=== PATIENT | male | born 1975 | race Caucasian/White ===

== ENCOUNTER 2018-04-15 11:25 | Inpatient (IN) | payer OTHER, SELFPAY ==
[2018-04-15 11:26] VITALS: BP 128/90; PULSE 95; RESP 18; TEMP 36.6; O2SAT 98; BMI 38.2
[2018-04-15] MEDS: 0.9% Normal Saline 1,000 ML 1000 ML IV (12:05)
[2018-04-15] MEDS: Morphine 4 MG/ML Syringe IV ×2 (12:06→14:22)
[2018-04-15] MEDS: Ondansetron 4 MG/2 ML Vial IV (12:06)
[2018-04-15 12:17] LABS: Absolute Lymphocyte Count 1.62 X10^3/ul (0.83-4.51); Basophil# 0.01 X10^3/uL; Basophil% 0.1 % (0-1); Differential Indicated SCAN CRITERIA MET; Eosinophils% 0.8 % (0-5); Hematocrit 45.9 % (40-54); Hemoglobin 15.5 g/dl (13.0-16.5); Lymphocyte # 1.62 X10^3/ul (4.0); Lymphocyte % 12.2 % (19-41); Mean Corp Hgb Conc 33.8 g/gl (32-36); Mean Corpuscular Hgb 31.8 pg (27.0-32.0); Mean Corpuscular Volume 94.3 fL (80-94); Mean Platelet Vol. 10.4 fl (6.2-12.0); Monocyte# 1.57 X10^3/uL; Monocyte% 11.8 % (0-10); Neutrophil # 10.01 X10^3/uL (2.7-7.7); Neutrophil % 74.9 % (47-70); POSITIVE COUNT NO; POSITIVE DIFFERENTIAL YES; POSITIVE MORPHOLOGY NO; Platelet Count 179 K/mm3 (150-450); RBC Distribution Width CV 12.5 % (11.6-14.6); RBC Distribution Width SD 42.6 fl (35.1-43.9); Red Blood Count 4.87 M/mm3 (4.6-6.2); White Blood Count 13.3 K/mm3 (4.4-11.0)
[2018-04-15 12:31] LABS: AST(SGOT) 16 U/L (15-37); Alanine Aminotransfer ALT/SGPT 32 U/L (16-61); Albumin, Serum 4.1 g/dL (3.2-5.0); Alkaline Phosphatase 71 U/L (45-117); Anion Gap 9 (5-15); BUN 9 mg/dL (7-18); BUN/Creat Ratio 8.9 RATIO (10-20); Bilirubin, Direct 0.26 mg/dL (0.00-0.30); Calcium,Total 9.1 mg/dL (8.5-10.1); Chloride 105 mmol/L (98-107); Creatinine, Serum 1.01 mg/dL (0.70-1.30); EST Glomerular Filtration Rate 87 mL/min (>60); Est Glom Filt Rate - Afr Amer 105 mL/min (>60); Estimated Creatinine Clearance 109.87 ml/min; Globulin 3.7 g/dL (2.2-4.2); Glucose 98 mg/dL (74-106); Lipase 80 U/L (73-393); Potassium 4.1 mmol/L (3.5-5.1); Protein, Total 7.8 g/dL (6.4-8.2); Sodium Level 138 mmol/L (136-145)
--- NOTE | 2018-04-15 14:45 | ED.VISSUMM ---
- ER Visit Summary Date of Service: 04/15/18 Chief Complaint: Abdominal pain History of Present Illness: The patient is a 42 M presenting with 24 hours of left lower quadrant abdominal pain, nausea, but no vomiting or diarrhea. Denies previous similar symptoms. No obvious relieving or exacerbating factors. Physical Examination: Vitals are within normal limits. He is not in distress. He does have tenderness in the left lower quadrant but no rebound or guarding Test Results: Blood cell count is elevated at 13,300. Chemistries within normal limits except for slight elevation of liver enzymes. CT with IV and p.o. contrast reveals moderate colonic diverticulitis in the transverse colon. Emergency Department Course and Treatment: He has moderate colitis. His pain is fairly significant and he had to be re-medicated twice and with his leukocytosis but I do think it is reasonable to hospitalize him for IV antibiotics. He was medicated with morphine twice as well as Cipro and Flagyl IV. Treatment Plan: Admit for IV antibiotics Disposition: Admission, stable condition Impression: Initial encounter acute diverticulitis This note was generated with [employer] dictation software. It may contain incorrect words, spelling, and punctuation that were not noted in review of the chart prior to signing ED Disposition - Plan for ED Patient: Chief Complaint: Abd Pain Referrals: Pedro Parsons MD [Primary Care Provider] -
--- NOTE | 2018-04-15 15:07 | NURSING ---
[facility] DIVERTICULITIS MILAD
[2018-04-15 15:31] VITALS: BMI 38.1; BMI 38.3
[2018-04-15 15:42] VITALS: BP 126/84; PULSE 78; RESP 18; TEMP 36.8; O2SAT 96
[2018-04-15] MEDS: Ketorolac 30 MG/ML Syringe IV ×2 (16:02→21:20)
[2018-04-15 16:09] LABS: Bacteria 0 SEEN /hpf (None Seen); Mucous, Urine 0 SEEN /hpf (<or=2+); White Blood Cells 0 SEEN /hpf (0-5)
[2018-04-15 16:12] LABS: Absolute Lymphocyte Count 1.85 X10^3/ul (0.83-4.51); Absolute Neutrophil Count 9.2 X10^3/uL (2.0-7.7); Basophil# 0.01 X10^3/uL; Basophil% 0.1 % (0-1); Eosinophil# 0.06 X10^3/uL; Eosinophils% 0.5 % (0-5); Hematocrit 44.3 % (40-54); Lymphocyte # 1.85 X10^3/ul (4.0); Lymphocyte % 15.2 % (19-41); Mean Corp Hgb Conc 33.9 g/gl (32-36); Mean Corpuscular Hgb 32.1 pg (27.0-32.0); Mean Corpuscular Volume 94.9 fL (80-94); Mean Platelet Vol. 9.9 fl (6.2-12.0); Monocyte# 1.11 X10^3/uL; Monocyte% 9.1 % (0-10); Neutrophil # 9.16 X10^3/uL (2.7-7.7); Neutrophil % 74.9 % (47-70); POSITIVE COUNT NO; POSITIVE DIFFERENTIAL NO; POSITIVE MORPHOLOGY NO; Platelet Count 181 K/mm3 (150-450); RBC Distribution Width CV 12.3 % (11.6-14.6); RBC Distribution Width SD 42.3 fl (35.1-43.9); Red Blood Count 4.67 M/mm3 (4.6-6.2); White Blood Count 12.2 K/mm3 (4.4-11.0)
[2018-04-15 16:12] LABS: Color, Urine Yellow (Yellow); Glucose, Dipstick Normal (Normal); Ketone-Dipstick Negative (Negative); Leukocyte Esterase-Dipstick Negative /ul (Negative); Nitrite-Dipstick Negative (Negative); Occult Blood-Urine 10 /ul (Negative); Protein-Dipstick Negative (Negative); Specific Gravity, Urine 1.015 (1.002-1.030); Urine Bilirubin Dipstick Negative (Negative); Urine Clarity Clear (Clear); Urine Urobilinogen Normal (Normal)
--- NOTE | 2018-04-15 16:21 | PCM.HP.STD ---
Problem List (1) Acute diverticulitis Status: Acute History of Present Illness Date of Admission: 04/15/18 Chief Complaint: abdominal pain The patient is a 42 year old M, presents to the ED with 1 day h/o abdominal pain. mainly in the upper and left side of the abdomen. Feels like a severe ache, about 8/10, constant, non radiating and with no known precipitating, aggravating or relieving factors. He denies any fever or chills. Has anorexia, has not reported any nausea or vomiting. Denies constipation or diarrhea, denies any hematochezia. CT done in the ED showed transverse colon diverticulitis. Patient has never had such an episode in the past.[] Past Medical History Medical History: Medical History (Last Updated 04/15/18 @ 16:26 by Kofi Wilkerson MD) HTN (hypertension) I10 Allergies No Known Allergies Allergy (Verified 04/15/18 11:27) Home Medications: Ambulatory Orders Medication Instructions Recorded Bisoprolol Fumarate [Zebeta] 5 mg PO DAILY 04/15/18 Lives: Spouse/ Significant Other, With Family Smoking Status: Former smoker Review of Systems Constitutional: Reports: Anorexia, Malaise, Weakness. Denies: Chills, Fever Cardiovascular: Denies: Chest Pain, Claudication, Orthopnea Respiratory: Denies: Cough, Hemoptysis, Shortness of Breath Gastrointestinal: Reports: Abdominal Pain. Denies: Constipation, Diarrhea, Hematemesis VTE Information - Inpt Only VTE Present on Admission: Yes Patient Problems: Active and Suspected Problems Acute diverticulitis (Acute) - Physical Exam General: Alert, Oriented x3, Cooperative, - - mildly ill looking and in painful distress Oral: Moist Mucosa Neck: Supple, No JVD, No Nuchal Rigidity Lungs: Clear to auscultation, Normal air movement, No rhonchi, No wheeze, No rales Cardiovascular: Regular rate, Regular Rhythm, Normal S1, Normal S2, No murmurs, No Ectopic Activity Abdomen: Bowel Sounds Present, Soft, Obese, Tender - tenderness in the upper and left parts of abdomen, no guarding demonstrated Extremities: No edema Skin: No rashes Musculoskeletal: No Muscle Wasting Neurological: Cranial nerves II-XII grossly intact, Deep Tendon Reflexes 2+/4 and Symmetrical, Neuro grossly intact, Motor Exam 5/5 strength throughout Psych/Mental Status: Normal Affect, Appropriate, Anxious Vital Signs Temp Pulse Resp BP Pulse Ox 98.3 F 78 18 126/84 H 96 04/15/18 15:42 04/15/18 15:42 04/15/18 15:42 04/15/18 15:42 04/15/18 15:42 Oxygen Delivery Method Room Air Weight: 131.088 kg Body Mass Index (BMI) 38.1 Laboratory Tests Past 24 Hrs 04/15/18 04/15/18 15:40 15:45 WBC 12.2 H RBC 4.67 Hgb 15.0 Hct 44.3 MCV 94.9 H MCH 32.1 H MCHC 33.9 RDW 12.3 RDW Differential 42.3 Plt Count 181 MPV 9.9 Immature Gran % (Auto) 0.200 Neut % (Auto) 74.9 H Lymph % (Auto) 15.2 L [place] % (Auto) 9.1 Eos % (Auto) 0.5 Baso % (Auto) 0.1 Absolute Neuts (auto) 9.2 H Absolute Lymphs (auto) 1.85 Total Counted Not Reportable Urine Color Pending Urine Clarity Pending Urine pH Pending Ur Specific [place] Pending Urine Protein Pending Urine Glucose (UA) Pending Urine Ketones Pending Urine Occult Blood Pending Urine Nitrite Pending Urine Bilirubin Pending Urine Urobilinogen Pending Ur Leukocyte Esterase Pending Urine RBC Pending Urine WBC Pending Ur Squamous Epith Cells Pending Urine Bacteria Pending Urine Mucus Pending Assessment/Plan All Active Problems Acute diverticulitis (Acute) 1. Acute [address] images personally viewed and show inflammation around diverticuli in the transverse colon. Will keep patient npo. Start on IV fluids and analgesics and start on broad spectrum antibiotics to cover usual gut gram negative aerobes and anaerobes. Nature of disease explained to patient and family and all questions answered. 2. Morbid obesity. Will need to international student counselor on weight reduction 3. HTN. Will continue Bisoprolol 4. DVT prophylaxis with Lovenox SC
[2018-04-15 16:28] LABS: Red Blood Cells-Urine 0-5 SEEN /hpf (0-5); Squamous Epithelial Cells - UA 0-5 SEEN /hpf (0-5)
[2018-04-15] MEDS: Morphine 2 MG/ML Syringe IV ×2 (17:19→22:40)
[2018-04-15 20:28] VITALS: BP 128/78; PULSE 69; RESP 16; TEMP 36.6; O2SAT 95
[2018-04-15] MEDS: 0.9% NaCl Peripheral Flush Adult/Peds IV ×2 (21:23→22:41)
[2018-04-15] MEDS: Ciprofloxacin 400 MG/200 ML BAG 200 MG IV (22:40)
[2018-04-16 02:30] VITALS: BP 123/81; PULSE 63; RESP 16; TEMP 36.9; O2SAT 97
[2018-04-16] MEDS: Ketorolac 30 MG/ML Syringe IV ×4 (03:03→21:49)
[2018-04-16] MEDS: 0.9% NaCl Peripheral Flush Adult/Peds IV ×4 (03:03→23:28)
[2018-04-16 09:51] VITALS: BP 137/79; PULSE 78; RESP 18; TEMP 36.7; O2SAT 98
[2018-04-16] MEDS: Ciprofloxacin 400 MG/200 ML BAG 200 MG IV ×2 (09:57→21:49)
[2018-04-16] MEDS: Morphine 2 MG/ML Syringe IV ×3 (09:57→23:27)
[2018-04-16] MEDS: Enoxaparin 40 MG/0.4 ML Syringe SC (09:58)
[2018-04-16] MEDS: Bisoprolol Fumarate 5 MG Tablet PO (09:59)
[2018-04-16 14:01] VITALS: BP 118/63; PULSE 78; RESP 18; TEMP 37.6; O2SAT 94
--- NOTE | 2018-04-16 15:14 | PCM.PN.HOSP ---
Patient Problems: Active and Suspected Problems (Last Updated 04/15/18 @ 16:26 by Kofi Wilkerson MD) Acute diverticulitis (Acute) Subjective: f/u for acute transverse colon diverticulitis patient seen and examined Still having abdominal pain No fever Vitals/I&O's: Vital Signs Temp Pulse Resp BP Pulse Ox 99.6 F H 78 18 118/63 94 04/16/18 14:01 04/16/18 14:01 04/16/18 14:01 04/16/18 14:01 04/16/18 14:01 Oxygen Delivery Method Room Air Weight: 131.088 kg Body Mass Index (BMI) 38.1 Intake and Output for Last 24 Hours 04/14/18 04/15/18 04/16/18 23:59 23:59 23:59 Intake Total 832 / 832 1926 / 1926 Output Total 600 / 600 Balance 832 / 832 1326 / 1326 General: Alert, Oriented x3, Cooperative, - - mild painful distress, mildly ill looking HEENT: Atraumatic, - - ? face appears puffy Oral: Moist Mucosa Neck: Supple Lungs: Clear to auscultation Cardiovascular: Regular rate Abdomen: Bowel Sounds Present - almost hyperactive, Hyperactive Bowel Sounds, Tender - tender in the mid, upper and left abdomen Extremities: No clubbing, No edema Skin: No rashes Neurological: Cranial nerves II-XII grossly intact, Neuro grossly intact Psych/Mental Status: Normal Affect, Appropriate, Alert and oriented to time, place, person, mood and affect Laboratory Results 04/15/18 15:40: WBC 12.2 H, RBC 4.67, Hgb 15.0, Hct 44.3, MCV 94.9 H, MCH 32.1 H, MCHC 33.9, RDW 12.3, RDW Differential 42.3, Plt Count 181, MPV 9.9, Immature Gran % (Auto) 0.200, Neut % (Auto) 74.9 H, Lymph % (Auto) 15.2 L, [place] % (Auto) 9.1, Eos % (Auto) 0.5, Baso % (Auto) 0.1, Absolute Neuts (auto) 9.2 H, Absolute Lymphs (auto) 1.85, Total Counted Not Reportable 04/15/18 15:45: Urine Color Yellow, Urine Clarity Clear, Urine pH 5.0, Ur Specific [place] 1.015, Urine Protein Negative, Urine Glucose (UA) Normal, Urine Ketones Negative, Urine Occult Blood 10 H, Urine Nitrite Negative, Urine Bilirubin Negative, Urine Urobilinogen Normal, Ur Leukocyte Esterase Negative, Urine RBC 0-5 SEEN, Urine WBC 0 SEEN, Ur Squamous Epith Cells 0-5 SEEN, Urine Bacteria 0 SEEN, Urine Mucus 0 SEEN Current Medications Bisoprolol Fumarate (Zebeta) 5 mg PO DAILY [facility] Last Admin: 04/16/18 09:59 Dose: 5 mg Enoxaparin Sodium (Lovenox) 40 mg SC DAILY@1000 [facility] Last Admin: 04/16/18 09:58 Dose: 40 mg Ciprofloxacin (Cipro) 400 mg in 200 mls @ 200 mls/hr IV Q12 [facility] Last Admin: 04/16/18 09:57 Dose: 200 mls/hr Metronidazole (Flagyl) 500 mg in 100 mls @ 100 mls/hr IV Q8 [facility] Last Admin: 04/16/18 14:09 Dose: 100 mls/hr Potassium Chloride/Dextrose/Sod Cl () 1,000 mls @ 125 mls/hr IV .Q8H [facility] Last Admin: 04/16/18 06:11 Dose: 125 mls/hr Ketorolac Tromethamine (Toradol) 30 mg IV Q6H [facility] Stop: 04/20/18 16:01 Last Admin: 04/16/18 09:59 Dose: 30 mg Magnesium Hydroxide (Milk Of Magnesia) 30 ml PO DAILY PRN PRN PRN Reason: Constipation Morphine Sulfate () 2 mg IV Q4H PRN PRN PRN Reason: BREAKTHROUGH PAIN (>4/10) Last Admin: 04/16/18 09:57 Dose: 2 mg Sodium Chloride () 5 - 30 ml IV UD PRN PRN Reason: SALINE FLUSH Last Admin: 04/16/18 03:03 Dose: 10 ml Medical Necessity - Tobacco Use Smoking Status: Former smoker Assessment/Plan All Active Problems (Last Updated 04/15/18 @ 16:26 by Kofi Wilkerson MD) Acute diverticulitis (Acute) 1. Acute diverticulitis. Not significantly better Will continue npo. Continue IV fluids and analgesics and antibiotics. 2. Morbid obesity. 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 HTN. Will continue Bisoprolol 4. DVT prophylaxis with Lovenox SC Code Visit Inpatient E&M: 24250 Subs Hosp L2
[2018-04-16 20:15] VITALS: BP 122/70; PULSE 68; RESP 16; TEMP 36.4; O2SAT 95
[2018-04-17 02:15] VITALS: BP 106/72; PULSE 56; RESP 16; TEMP 37.4; O2SAT 99
[2018-04-17] MEDS: 0.9% NaCl Peripheral Flush Adult/Peds IV (04:37)
[2018-04-17] MEDS: Ketorolac 30 MG/ML Syringe IV ×2 (04:38→10:12)
[2018-04-17 06:11] LABS: Absolute Lymphocyte Count 1.44 X10^3/ul (0.83-4.51); Absolute Neutrophil Count 4.7 X10^3/uL (2.0-7.7); Basophil# 0.01 X10^3/uL; Basophil% 0.1 % (0-1); Eosinophil# 0.18 X10^3/uL; Eosinophils% 2.6 % (0-5); Hematocrit 40.5 % (40-54); Hemoglobin 13.4 g/dl (13.0-16.5); Lymphocyte # 1.44 X10^3/ul (4.0); Lymphocyte % 20.5 % (19-41); Mean Corp Hgb Conc 33.1 g/gl (32-36); Mean Corpuscular Hgb 31.9 pg (27.0-32.0); Mean Corpuscular Volume 96.4 fL (80-94); Mean Platelet Vol. 10.1 fl (6.2-12.0); Monocyte# 0.74 X10^3/uL; Monocyte% 10.5 % (0-10); Neutrophil # 4.65 X10^3/uL (2.7-7.7); Neutrophil % 66.2 % (47-70); Platelet Count 153 K/mm3 (150-450); RBC Distribution Width CV 12.2 % (11.6-14.6); RBC Distribution Width SD 42.1 fl (35.1-43.9)
[2018-04-17 06:17] LABS: POSITIVE COUNT NO; POSITIVE DIFFERENTIAL NO; POSITIVE MORPHOLOGY NO
[2018-04-17 06:45] LABS: ALB/GLOB Ratio 0.8 RATIO (0.9-2.4); AST(SGOT) 10 U/L (15-37); Alanine Aminotransfer ALT/SGPT 23 U/L (16-61); Albumin, Serum 2.7 g/dL (3.2-5.0); Alkaline Phosphatase 66 U/L (45-117); Anion Gap 9 (5-15); BUN 9 mg/dL (7-18); BUN/Creat Ratio 10.4 RATIO (10-20); Calcium,Total 8.4 mg/dL (8.5-10.1); Chloride 108 mmol/L (98-107); Creatinine, Serum 0.87 mg/dL (0.70-1.30); EST Glomerular Filtration Rate 103 mL/min (>60); Est Glom Filt Rate - Afr Amer 125 mL/min (>60); Estimated Creatinine Clearance 127.55 ml/min; Globulin 3.3 g/dL (2.2-4.2); Glucose 99 mg/dL (74-106); Sodium Level 144 mmol/L (136-145)
[2018-04-17] MEDS: Morphine 2 MG/ML Syringe IV (07:44)
[2018-04-17 07:45] VITALS: BP 118/70; PULSE 57; RESP 16; TEMP 36.4; O2SAT 98
--- NOTE | 2018-04-17 10:04 | PCM.PN.HOSP ---
Patient Problems: Active and Suspected Problems (Last Updated 04/15/18 @ 16:26 by Kofi Wilkerson MD) Acute diverticulitis (Acute) Subjective: Still of left-sided abdominal pain but overall better. Patient has never had diverticulitis before. Vitals/I&O's: Vital Signs Temp Pulse Resp BP Pulse Ox 36.4 C L 57 L 16 118/70 98 04/17/18 07:45 04/17/18 07:45 04/17/18 07:45 04/17/18 07:45 04/17/18 07:45 Oxygen Delivery Method Room Air Weight: 131.088 kg Body Mass Index (BMI) 38.1 Intake and Output for Last 24 Hours 04/15/18 04/16/18 04/17/18 23:59 23:59 23:59 Intake Total 832 / 832 3508 / 3508 705 / 705 Output Total 1200 / 1200 600 / 600 Balance 832 / 832 2308 / 2308 105 / 105 General: Alert, No apparent distress HEENT: Atraumatic, Normocephalic Oral: Moist Mucosa, No Gingival or Mucosal Lesions/ Ulcerations Neck: No Nodes, Thyroid Normal Size and Texture Lungs: Clear to auscultation, Normal air movement, No rhonchi, No wheeze Cardiovascular: Regular rate, Regular Rhythm, Normal S1, Normal S2, No murmurs Abdomen: Bowel Sounds Present, Soft, Non-Distended, No Hepato-splenomegaly, Tender - Mild left lower quadrant Extremities: No edema, No Calf Tenderness Skin: No rashes, No breakdown Psych/Mental Status: Normal Affect, Appropriate Laboratory Results 04/17/18 05:35: WBC 7.0, RBC 4.20 L, Hgb 13.4, Hct 40.5, MCV 96.4 H, MCH 31.9, MCHC 33.1, RDW 12.2, RDW Differential 42.1, Plt Count 153, MPV 10.1, Immature Gran % (Auto) 0.100, Neut % (Auto) 66.2, Lymph % (Auto) 20.5, [place] % (Auto) 10.5 H, Eos % (Auto) 2.6, Baso % (Auto) 0.1, Absolute Neuts (auto) 4.7, Absolute Lymphs (auto) 1.44, Total Counted Not Reportable 04/17/18 05:35: Sodium 144, Potassium 4.0, Chloride 108 H, Carbon Dioxide 27.0, Anion Gap 9, BUN 9, Creatinine 0.87, Estim Creat Clear Calc 127.55, Est GFR (MDRD) Af Amer 125, Est GFR (MDRD) Non-Af 103, BUN/Creatinine Ratio 10.4, Glucose 99, Calcium 8.4 L, Total Bilirubin 0.80, AST 10 L, ALT 23, Alkaline Phosphatase 66, Total Protein 6.0 L, Albumin 2.7 L, Globulin 3.3, Albumin/Globulin Ratio 0.8 L Current Medications Bisoprolol Fumarate (Zebeta) 5 mg PO DAILY [facility] Last Admin: 04/16/18 09:59 Dose: 5 mg Enoxaparin Sodium (Lovenox) 40 mg SC DAILY@1000 [facility] Last Admin: 04/16/18 09:58 Dose: 40 mg Ciprofloxacin (Cipro) 400 mg in 200 mls @ 200 mls/hr IV Q12 [facility] Last Admin: 04/16/18 21:49 Dose: 200 mls/hr Metronidazole (Flagyl) 500 mg in 100 mls @ 100 mls/hr IV Q8 [facility] Last Admin: 04/17/18 05:24 Dose: 100 mls/hr Potassium Chloride/Dextrose/Sod Cl () 1,000 mls @ 125 mls/hr IV .Q8H [facility] Last Admin: 04/17/18 05:24 Dose: 125 mls/hr Ketorolac Tromethamine (Toradol) 30 mg IV Q6H [facility] Stop: 04/20/18 16:01 Last Admin: 04/17/18 04:38 Dose: 30 mg Magnesium Hydroxide (Milk Of Magnesia) 30 ml PO DAILY PRN PRN PRN Reason: Constipation Morphine Sulfate () 2 mg IV Q4H PRN PRN PRN Reason: BREAKTHROUGH PAIN (>4/10) Last Admin: 04/17/18 07:44 Dose: 2 mg Sodium Chloride () 5 - 30 ml IV UD PRN PRN Reason: SALINE FLUSH Last Admin: 04/17/18 04:37 Dose: 10 ml Medical Necessity - Tobacco Use Smoking Status: Former smoker Assessment/Plan All Active Problems (Last Updated 04/15/18 @ 16:26 by Kofi Wilkerson MD) Acute diverticulitis (Acute) 1. Acute diverticulitis Overall improving Would advance diet from clears to low residue, patient tolerates that and I would anticipate patient being able to be discharged to complete a course of ciprofloxacin and metronidazole and would treat through the 10th Patient made him aware that this could be just an isolated event but certainly could happen again and to have a low threshold to notify his physician or come back to the emergency room if he does have worsening symptoms. The patient does well with diet later on today than I would anticipate patient being able to be discharged this afternoon. 2. DVT prophylaxis with Lovenox Code Visit Inpatient E&M: 42881 Subs Hosp L2
[2018-04-17] MEDS: Enoxaparin 40 MG/0.4 ML Syringe SC (10:12)
[2018-04-17] MEDS: Ciprofloxacin 400 MG/200 ML BAG 200 MG IV (10:12)
[2018-04-17] MEDS: Bisoprolol Fumarate 5 MG Tablet PO (10:13)
[2018-04-17 11:45] VITALS: BP 113/79; PULSE 58; RESP 16; TEMP 36.3; O2SAT 95
[2018-04-17 14:15] VITALS: BP 115/64; PULSE 64; RESP 16; TEMP 36.6; O2SAT 96
--- NOTE | 2018-04-17 14:20 | PCM.WORK.EX ---
Work/School Excuse Work/School Excuse for:: Patient Please excuse this person from:: Work From: 04/15/18 through: 05/04/18
--- NOTE | 2018-04-17 14:21 | PCM.DC ---
- Discharge Diagnoses Current Active Problems: Current Active and Chronic Problems (Last Updated 04/15/18 @ 16:26 by Kofi Wilkerson MD) Acute diverticulitis (Acute) You will use the following diet at home:: Other - [place] and soft. Advance as tolerated. No alcohol while taking metronidazol. Your food should be the consistency of: Soft (bite-sized & easy to chew/swallow) - advance as tolerated Your liquids should be the consistency of: Regular/Thin Discharge Activity: Return to Normal Activity, May not drive while taking narcotic pain medications. Return to work on:: 04/20/18 Call your doctor if you observe: Fever of 101 or Higher, - - worsening abdominal pain. Allergies/Adverse Reactions: Allergies No Known Allergies Allergy (Verified 04/15/18 11:27) Medications to take at Discharge Bisoprolol Fumarate [Zebeta (Beta Jimi)] 5 mg PO DAILY 04/15/18 Acetaminophen 1,000 mg PO TID PRN #1 tablet 04/17/18 Ciprofloxacin [Cipro] 500 mg PO BID #16 tab 04/17/18 Ibuprofen 400 - 600 mg PO Q6H PRN #1 tablet 04/17/18 Metronidazole [Flagyl] 500 mg PO Q8H #24 tab 04/17/18 Oxycodone [Oxyfast] 5 mg PO Q6H PRN 3 Days #12 ml 04/17/18 The following prescriptions were given: Metronidazole [Flagyl] 500 mg PO Q8H #24 tab Ciprofloxacin [Cipro] 500 mg PO BID #16 tab Ibuprofen 400 - 600 mg PO Q6H PRN #1 tablet PRN Reason: Pain Oxycodone [Oxyfast] 5 mg PO Q6H PRN 3 Days #12 ml PRN Reason: Severe Pain (6-10/10) Acetaminophen 1,000 mg PO TID PRN #1 tablet PRN Reason: Pain Primary Care Physician: Pedro Parsons MD [Primary Care Provider] - Within 2 Weeks Test Results: Test results from this visit will be discussed in further detail at your follow-up appointment, if applicable. Proposed Discharge Date: 04/17/18
--- NOTE | 2018-04-17 14:24 | PCM.DC.SUM ---
Discharge Date and Diagnosis - Problem List Patient Problems: Active and Suspected Problems (Last Updated 04/15/18 @ 16:26 by Kofi Wilkerson MD) Acute diverticulitis (Acute) Date of Admission: 04/15/18 Date of Discharge: 04/17/18 - Primary Discharge Diagnosis Active and Suspected Problems (Last Updated 04/15/18 @ 16:26 by Kofi Wilkerson MD) Acute diverticulitis (Acute) Hospital Course and Treatment Imaging Results: Clinical Impression(s) from Imaging Studies Abdomen/Pelvis CT 04/15/18 11:44 IMPRESSION: Mid transverse colon diverticulitis. Fatty umbilical hernia. Small hiatal hernia. Electronically Signed: Riky Brady DO at 14:32 EDT Tel [phone], Service support , Operations: None Procedures: None Summary of Care Provided: The patient is a 42 year old M abdominal pain. Patient had a CAT scan that showed in the transverse colon. Patient denies ever having had like this before. Patient was started on IV ciprofloxacin and metronidazole. Overall, the patient has improved. Patient was started on clears which he tolerated and advanced to soft low residue diet which she also tolerated. Patient will be discharged today. Patient will complete course of ciprofloxacin and metronidazole for a total of 10 days. Patient advised to return if he has worsening abdominal pain or increasing fever. Patient will be off of work until April 20.[] Discharge Diet: - - bland, advance as tolerated. Discharge Activity: Return to Normal Activity, May not drive while taking narcotic pain medications. Return to work on:: 04/20/18 Call your doctor if you observe: Fever of 101 or Higher, - - worsening abdominal pain. Home Medications: Medications to take at Discharge Bisoprolol Fumarate [Zebeta (Beta Jimi)] 5 mg PO DAILY 04/15/18 Acetaminophen 1,000 mg PO TID PRN #1 tablet 04/17/18 Ciprofloxacin [Cipro] 500 mg PO BID #16 tab 04/17/18 Ibuprofen 400 - 600 mg PO Q6H PRN #1 tablet 04/17/18 Metronidazole [Flagyl] 500 mg PO Q8H #24 tab 04/17/18 Oxycodone [Oxyfast] 5 mg PO Q6H PRN 3 Days #12 ml 04/17/18 Following Prescrptions Were Given to Patient: Metronidazole [Flagyl] 500 mg PO Q8H #24 tab Ciprofloxacin [Cipro] 500 mg PO BID #16 tab Ibuprofen 400 - 600 mg PO Q6H PRN #1 tablet PRN Reason: Pain Oxycodone [Oxyfast] 5 mg PO Q6H PRN 3 Days #12 ml PRN Reason: Severe Pain (6-05/24) Acetaminophen 1,000 mg PO TID PRN #1 tablet PRN Reason: Pain Primary Care Physician: Pedro Parsons MD [Primary Care Provider] - Within 2 Weeks Disposition: Home Minutes spent on discharge:: 32 Patient Condition:: Good Medical Necessity - Tobacco Use Smoking Status: Former smoker Meaningful Use Info Meaningful Use Diagnoses (Choose all that apply): None applicable Code Visit Inpatient E&M: 66273 Disch Hosp
== END 2018-04-17 16:13 | disposition home or self-care (01) | DRG 392 ==
LOC: ED 12:12 → MS3 15:14
PROVIDERS: Admitting Provider Internal Medicine; Emergency Provider Emergency Medicine; Family Provider Family Medicine; PCP Family Medicine
DX: K57.32 Diverticulitis of large intestine without perforation or abscess without bleeding (principal); I10 Essential (primary) hypertension; E66.01 Morbid (severe) obesity due to excess calories; Z68.38 Body mass index [BMI] 38.0-38.9, adult; Z87.891 Personal history of nicotine dependence
CPT/HCPCS: 36415; 74177; 80048; 80053; 80076; 81001; 83690; 85025; 99283; J7030; J7040; Q9967; A4216; J0744; J2405

== ENCOUNTER → 2019-04-25 14:24 | Outpatient (CLI) | payer OTHER, SELFPAY ==
[2018-04-15 15:31] VITALS: BMI 38.1
[2019-04-25 15:56] LABS: Absolute Lymphocyte Count 3.42 X10^3/uL (0.83-4.51); Absolute Neutrophil Count 4.3 X10^3/uL (2.0-7.7); Basophil# 0.02 X10^3/uL; Basophil% 0.2 % (0-1); Eosinophil# 0.21 X10^3/uL; Eosinophils% 2.5 % (0-5); Hematocrit 46.9 % (40-54); Hemoglobin 16.2 g/dL (13.0-16.5); Lymphocyte # 3.42 X10^3/ul (4.0); Lymphocyte % 40.2 % (19-41); Mean Corp Hgb Conc 34.5 g/dL (32-36); Mean Corpuscular Hgb 32.5 pg (27.0-32.0); Mean Corpuscular Volume 94.2 fL (80-94); Mean Platelet Vol. 10.4 fl (6.2-12.0); Monocyte# 0.57 X10^3/uL; Monocyte% 6.7 % (0-10); NRBC Flagged by Analyzer 0 % (0-5); Neutrophil # 4.26 X10^3/uL (2.7-7.7); Neutrophil % 50.2 % (47-70); Platelet Count 219 K/mm3 (150-450); RBC Distribution Width SD 41.6 fl (35.1-43.9); Red Blood Count 4.98 M/mm3 (4.6-6.2); White Blood Count 8.5 K/mm3 (4.4-11.0)
[2019-04-25 16:22] LABS: ALB/GLOB Ratio 1.1 RATIO (0.9-2.4); AST(SGOT) 25 U/L (15-37); Alanine Aminotransfer ALT/SGPT 44 U/L (16-61); Albumin, Serum 3.9 g/dL (3.2-5.0); Alkaline Phosphatase 70 U/L (45-117); Anion Gap 7 (5-15); BUN 15 mg/dL (7-18); Chloride 108 mmol/L (98-107); Creatinine, Serum 1.15 mg/dL (0.70-1.30); EST Glomerular Filtration Rate 74 mL/min (>60); Est Glom Filt Rate - Afr Amer 90 mL/min (>60); Globulin 3.4 g/dL (2.2-4.2); Glucose 96 mg/dL (74-106); Potassium 4.7 mmol/L (3.5-5.1); Protein, Total 7.3 g/dL (6.4-8.2); Sodium Level 143 mmol/L (136-145); Uric Acid 10.4 mg/dL (3.5-7.2)
== END ==
LOC: MFPLAB 14:26
PROVIDERS: Family Provider Family Medicine; PCP Family Medicine; Referring Provider Family Medicine; Visit Provider Family Medicine
DX: I10 Essential (primary) hypertension (principal)
CPT/HCPCS: 36415; 80053; 84550; 85025

== ENCOUNTER → 2022-05-21 | Outpatient (CLI) | payer BC, MEDICAID, SELFPAY ==
[2022-05-21 17:57] LABS: Microalbumin,Random Urine 11.8 mg/L (NO RANGE EST.); Microalbumin:Creatinine Ratio 8.7 mg/g CRE (<30 mg/g CRE)
[2022-05-21 18:04] LABS: ALB/GLOB Ratio 1.1 RATIO (0.9-2.4); AST(SGOT) 19 U/L (15-37); Alanine Aminotransfer ALT/SGPT 42 U/L (16-61); Alkaline Phosphatase 77 U/L (45-117); Anion Gap 8 (5-15); BUN 13 mg/dL (7-18); Calcium,Total 9.6 mg/dL (8.5-10.1); Chloride 106 mmol/L (98-107); Cholesterol 219 mg/dL (200); Creatinine, Serum 0.93 mg/dL (0.70-1.30); EST Glomerular Filtration Rate 94 mL/min (>60); Est Glom Filt Rate - Afr Amer 113 mL/min (>60); Globulin 3.5 g/dL (2.2-4.2); Glucose 115 mg/dL (74-106); High Density Lipoprotein 31 mg/dL; Protein, Total 7.5 g/dL (6.4-8.2); Sodium Level 138 mmol/L (136-145); Uric Acid 7.1 mg/dL (3.5-7.2)
== END | disposition home or self-care (01) ==
LOC: MFPLAB 15:50
PROVIDERS: PCP Family Medicine; Referring Provider Family Medicine; Visit Provider Family Medicine
DX: I10 Essential (primary) hypertension (principal); E78.00 Pure hypercholesterolemia, unspecified; M10.9 Gout, unspecified
CPT/HCPCS: 36415; 80053; 82043; 82465; 82570; 83718; 84550

== ENCOUNTER → 2022-07-07 | Outpatient (CLI) | payer BC, MEDICAID, SELFPAY ==
--- NOTE | 2022-07-07 07:58 | CT_ITS ---
STUDY: CT ABDOMEN WITH CONTRAST REASON FOR EXAM: Male, 47 years old. Umbilical hernia, increased abdominal pain RADIATION DOSAGE (If Supplied By Facility): CTDIvol = ( 23.73 ) mGy, DLP = ( 1132.39 ) mGycm TECHNIQUE: Transaxial images were obtained post I.V. administration of Oral Readi-CAT, and oral contrast. Sagittal and coronal images were reconstructed. Individualized dose optimization techniques were used for this CT. COMPARISON: 04/15/2018 CT abdomen and pelvis FINDINGS: There is a right side diaphragmatic hernia containing fat and opening of approximately 3.3 cm with herniated fat into the right posterior lateral aspect of the chest in addition to the dome of the diaphragm protrudes up into the right chest similar to prior study. The visualized portions of the heart are within normal limits. Is mild fatty liver infiltration with sparing. Normal gallbladder and extrahepatic biliary system. There is [id number] spinal mammography. Normal pancreas. Normal bilateral adrenal glands. Normal right kidney. Normal left kidney. There is a small hiatal hernia. There is a minimal amount of contrast within the small bowel. Normal small intestine. There is contrast within the large bowel. There are few diverticula within the descending colon. There is mild to moderate stool within the partially visualized colon. There is no diverticulitis. The appendix is visualized and appears normal. Normal abdominal aorta. Normal inferior vena cava. Normal retroperitoneum. There is a wide diastases of the rectus muscle. There is an opening in the midline fascia measuring 4.4 cm. There is herniation of fat into this opening both cranial and caudal to the umbilicus measuring 10.2 x 10.9 x 6.3 cm. Compared to the prior study when it measured 2.8 x 3.4 x 3.0 cm with an opening of 2.4 cm. There is visualized degenerative change of the thoracolumbar spine. At L5-S1 there is disc space narrowing spondylosis moderate neural foraminal narrowing, no significant central stenosis. CT/Abdomen WITH ORAL Cont Only IMPRESSION: Interval increase in the size of the fat-containing periumbilical hernia now measuring 10.2 x 10.9 x 6.3 cm extending to an opening measuring 4.4 cm. This is compared to the prior study 04/15/2018 when it measured 2.8 x 3.4 x 3.0 cm with an opening of 2.4 cm. [id number] constipation diverticulosis no diverticulitis. No appendicitis no hydronephrosis. Right side diaphragmatic fatty herniation greater than prior study. Small hiatal hernia. Similar to prior study. Degenerative changes of thoracolumbar spine. Electronically Signed: Eli Rey MD at 8:40 EST ,
== END | disposition home or self-care (01) ==
PROVIDERS: PCP Family Medicine; Referring Provider Surgery; Visit Provider Surgery
DX: K42.9 Umbilical hernia without obstruction or gangrene (principal); R10.9 Unspecified abdominal pain
CPT/HCPCS: 74150

== ENCOUNTER → 2023-01-14 | Outpatient (CLI) | payer BC, MEDICAID, SELFPAY ==
[2023-01-14 13:26] LABS: ALB/GLOB Ratio 1.1 RATIO (0.9-2.4); AST(SGOT) 27 U/L (15-37); Alanine Aminotransfer ALT/SGPT 59 U/L (16-61); Albumin, Serum 4.1 g/dL (3.2-5.0); Alkaline Phosphatase 81 U/L (45-117); Anion Gap 6 (5-15); BUN 15 mg/dL (7-18); BUN/Creat Ratio 16.3 RATIO (10-20); Calcium,Total 9.2 mg/dL (8.5-10.1); Chloride 106 mmol/L (98-107); Cholesterol 235 mg/dL (200); Creatinine, Serum 0.92 mg/dL (0.70-1.30); EST Glomerular Filtration Rate 94 mL/min (>60); Est Glom Filt Rate - Afr Amer 114 mL/min (>60); Globulin 3.7 g/dL (2.2-4.2); Glucose 97 mg/dL (74-106); High Density Lipoprotein 36 mg/dL; Potassium 4.5 mmol/L (3.5-5.1); Protein, Total 7.8 g/dL (6.4-8.2); Sodium Level 140 mmol/L (136-145)
== END | disposition home or self-care (01) ==
LOC: MFPLAB 11:01
PROVIDERS: PCP Family Medicine; Visit Provider Family Medicine
DX: I10 Essential (primary) hypertension (principal)
CPT/HCPCS: 36415; 80053; 82465; 83718

== ENCOUNTER → 2024-02-14 | Outpatient (CLI) | payer BC, SELFPAY ==
[2024-02-14 12:20] LABS: Microalbumin,Random Urine 9.8 mg/L (NO RANGE EST.); Microalbumin:Creatinine Ratio 5.2 mg/g CRE (<30 mg/g CRE)
[2024-02-14 12:29] LABS: ALB/GLOB Ratio 1.1 RATIO (0.9-2.4); AST(SGOT) 16 U/L (15-37); Alanine Aminotransfer ALT/SGPT 38 U/L (16-61); Albumin, Serum 3.8 g/dL (3.2-5.0); Alkaline Phosphatase 83 U/L (45-117); Anion Gap 9 (5-15); BUN 15 mg/dL (7-18); Calcium,Total 9.2 mg/dL (8.5-10.1); Chloride 104 mmol/L (98-107); Cholesterol 230 mg/dL (200); EST Glomerular Filtration Rate 85 mL/min (>60); Est Glom Filt Rate - Afr Amer 103 mL/min (>60); Globulin 3.5 g/dL (2.2-4.2); Glucose 104 mg/dL (74-106); High Density Lipoprotein 40 mg/dL; Protein, Total 7.3 g/dL (6.4-8.2); Sodium Level 141 mmol/L (136-145); Triglycerides 273 mg/dL; Very Low Density Lipoprotein 55 mg/dL (5-40)
== END | disposition home or self-care (01) ==
LOC: MFPLAB 09:49
PROVIDERS: PCP Family Medicine; Visit Provider Family Medicine
DX: E78.00 Pure hypercholesterolemia, unspecified (principal); I10 Essential (primary) hypertension
CPT/HCPCS: 36415; 80053; 80061; 82043; 82570

== ENCOUNTER → 2024-10-12 | Outpatient (CLI) | payer BC, SELFPAY ==
--- NOTE | 2024-10-12 17:10 | RAD_ITS ---
PROCEDURE: ELBOW MIN 3 VIEWS REASON FOR EXAM: Hit right elbow on a pole 3 days ago, limited range of motion, pain and swelling TECHNIQUE: 3 view(s) of right elbow COMPARISON: None. FINDINGS: RIGHT ELBOW: No fracture, dislocation or joint effusion identified. Very small spurring at the coronoid process. Appearance of medial soft tissue swelling. Joint spaces appear within limits. RAD/Elbow min 3 Views IMPRESSION: No fracture, dislocation or joint effusion identified. Appearance of medial soft tissue swelling. Reading Location: [id number]
== END | disposition home or self-care (01) ==
LOC: MTRAD 17:07
PROVIDERS: PCP Family Medicine; Referring Provider Family Medicine; Visit Provider Family Medicine
DX: S59.901A Unspecified injury of right elbow, initial encounter (principal); W22.09XA Striking against other stationary object, initial encounter
CPT/HCPCS: 73080

== ENCOUNTER → 2024-11-23 | Outpatient (CLI) | payer BC, SELFPAY ==
[2024-11-23 18:31] LABS: ALB/GLOB Ratio 1.6 RATIO (0.9-2.4); AST(SGOT) 24 U/L (<=37); Alanine Aminotransfer ALT/SGPT 30 U/L (<=46); Albumin, Serum 4.4 g/dL (3.5-5.0); Alkaline Phosphatase 79 U/L (40-129); Anion Gap 13 (5-15); BUN 18 mg/dL (4-19); BUN/Creat Ratio 17.3 RATIO (10-20); Carbon Dioxide 26.2 mmol/L (21.0-32.0); Chloride 103 mmol/L (98-108); Creatinine, Serum 1.01 mg/dL (0.70-1.20); EST Glomerular Filtration Rate 92 (>60); Globulin 2.8 g/dL (2.2-4.2); Glucose 89 mg/dL (70-99); Potassium 4.3 mmol/L (3.3-5.1); Protein, Total 7.3 g/dL (5.9-8.4); Sodium Level 141 mmol/L (133-145); Total Bilirubin 0.28 mg/dL (0.00-1.30)
[2024-11-23 20:34] LABS: Microalbumin,Random Urine < 12.0 mg/L (NO RANGE EST.); Microalbumin:Creatinine Ratio UNABLE TO CALCULATE mg/g CRE
== END | disposition home or self-care (01) ==
LOC: MTLAB 16:54
PROVIDERS: PCP Family Medicine; Referring Provider Family Medicine; Visit Provider Family Medicine
DX: I10 Essential (primary) hypertension (principal)
CPT/HCPCS: 80053; 82043; 82570; 84443

== ENCOUNTER → 2025-08-09 | Outpatient (CLI) | payer BC, SELFPAY ==
--- OUTSIDE RECORDS SUMMARY | 2025-08-09 10:57 | XMS RPT_ITS | CCD ---
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 Vasquez Primary Care Provider [phone] Halle DUMOTN, Dr. Florian Attending Provider Halle DUMONT, Dr. Florian Referring Provider Issa DUMONT, Dr. Vasquez Attending Provider Issa DUMNOT, Dr. Vasquez Referring Provider Pedro Parsons Primary Care Unavailable Anival Neri Attending Unavailable Anival Neri Referring Unavailable Pedro Parsons Primary Care Unavailable Pedro Parsons Attending Unavailable Pedro Parsons Referring Unavailable Pedro Parsons Primary Care Unavailable Fili Day Attending Unavailable Pedro Parsons Primary Care Unavailable Pedro Parsons Attending Unavailable Medications Current Medications Medication Drug Class(es) Dates Sig (Normalized) Sig (Original) allopurinol 300 mg oral tablet (3 sources) Xanthine Oxidase Inhibitor Start: 06-04-2022 take 1 tablet by mouth twice daily Allopurinol 300 mg tablet Active 300 mg PO TWICE A DAY June 04, 2022 12:00am bisoprolol fumarate 5 mg oral tablet (4 sources) beta-Adrenergic Jimi Start: 04-15-2018 take 1 tablet by mouth once daily Bisoprolol Fumarate 5 MG tablet Active 5 mg PO DAILY April 15, 2018 12:00am calcium ascorbate 500 mg oral tablet (7 sources) Start: 06-04-2022 take 1 g by mouth once daily Ascorbate Calcium (Vitamin C) Active 1 GM PO DAILY June 04, 2022 8:33am Start: 08-19-2019 End: 06-04-2022 take 1 g by mouth once daily Ascorbate Calcium (Vitami n C) 500 mg tablet Active 1 g PO DAILY June 04, 2022 8:33am Multivitamin capsule (2 sources) Start: 08-19-2019 Multivitamin capsule Active 1 NMA PO DAILY August 19, 2019 1:00am Multivitamin preparation (2 sources) Start: 08-19-2019 take 1 capsule by mouth once daily multivitamin Active 1 CAP PO DAILY August 19, 2019 1:00am ramipril 1.25 mg oral capsule (4 sources) Angiotensin Converting Enzyme Inhibitor Start: 08-19-2019 Ramipril 1.25 mg capsule Active mg PO August 19, 2019 1:00am Start: 08-19-2019 Ramipril Activ e MG PO August 19, 2019 1:00am Completed/Discontinued Medications Medication Drug Class(es) Dates Sig (Normalized) Sig (Original) acetaminophen 500 mg oral tablet (4 sources) Start: 04-17-2018 End: 08-19-2019 take 2 tablets by mouth three times daily as needed for pain Acetaminophen 500 MG tablet Discontinued 1000 mg PO THREE TIMES A DAY as needed for Pain 1 April 17, 2018 2:13pm August 19, 2019 2:56pm Start: 04-17-2018 End: 08-19-2019 take 1000 mg by mouth three times daily Acetaminophen Discontinued 1000 MG PO THREE TIMES A DAY April 17, 2018 2:13pm August 19, 2019 2:56pm azithromycin 250 mg oral tablet (4 sources) Macrolide Antimicrobial Start: 08-19-2019 End: 06-04-2022 take 2-5 tablets by mouth once daily Azithromycin (Zithromax Z-Eagle) 250 mg tablet Discontinued 0 PO .COMPLEX 6 August 19, 2019 1:00am June 04, 2022 8:34am take 500 mg today (day 1), then 250 mg for 4 days (days 2-5) PO ciprofloxacin 500 mg oral tablet (4 sources) Quinolone Antimicrobial Start: 04-17-2018 End: 08-19-2019 take 1 tablet by mouth twice daily Ciprofloxacin Hcl 500 MG tablet Discontinued 500 mg PO TWICE A DAY April 17, 2018 12:00am August 19, 2019 2:56pm ibuprofen 200 mg oral tablet (4 sources) Nonsteroidal Anti-inflammatory Drug Start: 04-17-2018 End: 08-19-2019 take 400-600 mg by mouth every six hours as needed for pain Ibuprofen 200 MG tablet Discontinued 400 - 600 mg PO EVERY 6 HOURS as needed for Pain April 17, 2018 2:13pm August 19, 2019 2:56pm metroNIDAZOLE 500 mg oral tablet (4 sources) Nitroimidazole Antimicrobial Start: 04-17-2018 End: 08-19-2019 take 1 tablet by mouth every eight hours Metronidazole 500 MG tablet Discontinued 500 mg PO Q8H April 17, 2018 12:00am August 19, 2019 2:57pm oxyCODONE hydrochloride 20 mg/ml oral solution (4 sources) Opioid Agonist Start: 04-17-2018 End: 08-19-2019 take 5 mg by mouth every six hours as needed for pain Oxycodone 10 MG/0.5 ML concentrate Discontinued 5 mg PO EVERY 6 HOURS as needed for Severe Pain (6-05/24) 12 April 17, 2018 2:13pm August 19, 2019 2:57pm Problems Problem Classification Problem Date Documented Date Episodic/Chronic Abdominal hernia (6 sources) Umbilical hernia; Translations: [Umbilical hernia without obstruction or gangrene] 06-04-2022 Episodic Abdominal pain (3 sources) Abdominal pain; Translations: [Unspecified abdominal pain] 06-04-2022 Episodic Disorders of lipid metabolism (1 source) Pure hypercholesterolemia, unspecified; Translations: [Pure hypercholesterolemia, unspecified] Onset: 03-01-2024 Chronic Diverticulosis and diverticulitis (4 sources) Diverticulitis of intestine; Translations: [Diverticulitis of intestine, part unspecified, without perforation or abscess without bleeding] 04-15-2018 Chronic Essential hypertension (1 source) Essential (primary) hypertension; Translations: [Essential (primary) hypertension] Onset: 11-28-2024 Chronic Other injuries and conditions due to external causes (1 source) Unspecified injury of right elbow, initial encounter; Translations: [Unspecified injury of right elbow, initial encounter] Onset: 10-24-2024 Episodic Sprains and strains (4 sources) Strain of muscle at thorax level; Translations: [Strain of muscle and tendon of unspecified wall of thorax, initial encounter] 04-15-2018 Episodic Results Test Name Value Interpretation Reference Range Facility Albumin DL <= 20 mg/L (U) [M ass/Vol]Ordered By: Pedro Parsons on 11-23-2024 Urine Random Microalbumin < 12.0 mg/L NO RANGE EST. [facility] Anion gap in Serum or Plasma Ordered By: Pedro Parsons on 11-23-2024 Anion gap [Moles/Vol] 13 mmol/L 5-15 [facility] BUN/creatinine ratioOrdered By: Pedro Parsons on 11-23-2024 Urea nitrogen/Creatinine [Mass ratio] 17.3 mg/mg 10-20 [facility] Bilirubin, totalOrdered By: Pedro Parsons on 11-23-2024 Bilirubin [Mass/Vol] 0.28 mg/dL 0.00-1.30 [facility] Carbon dioxide, total [Moles /volume] in Central venous bloodOrdered By: Pedro Parsons on 11-23-2024 CO2 [Moles/Vol] 26.2 mmol/L 21.0-32.0 [facility] Chloride assayOrdered By: Fredi Parsons on 11-23-2024 Chloride [Moles/Vol] 103 mmol/L 98-108 [facility] Comprehensive Metabolic Prof ilon 11-23-2024 Albumin [Mass/Vol] 4.4 g/dL Normal 3.5-5.0 [facility] Comment on above: Order Comment: Order Date: 11/23/24 Order Info: 0786-1 - CMP Order Info: [id number] - TSH Performed By: #### L [id number], [id number] #### [facility] [address] [place], [address] Albumin/Globulin [Mass ratio] 1.6 {ratio} Normal 0.9-2.4 [facility] Comment on above: Order Comment: Order Date: 11/23/24 Order Info: 0786-1 - CMP Order Info: 3016-3 - TSH Performed By: #### L [id number], [id number] #### [facility] [address] [place], [address] ALK PHOS 79 U/L Normal 40-129 [facility] Comment on above: Order Comment: Order Date: 11/23/24 Order Info: 0786-1 - CMP Order Info: [id number] - TSH Performed By: #### L [id number], [id number] #### [facility] [address] [place], [address] ALT [Catalytic activity/Vol] 30 U/L Normal <=46 [facility] Comment on above: Order Comment: Order Date: 11/23/24 Order Info: 0786-1 - CMP Order Info: [id number] - TSH Performed By: #### L [id number], [id number] #### [facility] [address] [place], [address] AST [Catalytic activity/Vol] 24 U/L Normal <=37 [facility] Comment on above: Order Comment: Order Date: 11/23/24 Order Info: 07-1 - CMP Order Info: [id number] - TSH Performed By: #### L [id number], [id number] #### [facility] [address] [place], [address] Bilirubin [Mass/Vol] 0.28 mg/dL Normal 0.00-1.30 [facility] Comment on above: Order Comment: Order Date: 11/23/24 Order Info: 07-1 - CMP Order Info: 3 - TSH Performed By: #### L [id number], [id number] #### [facility] [address] [place], [address] BUN/CRE 17.3 RATIO Normal 10-20 [facility] Comment on above: Order Comment: Order Date: 11/23/24 Order Info: 0786-1 - CMP Order Info: 3015-3 - TSH Performed By: #### L [id number], [id number] #### [facility] [address] [place], [address] Calcium [Mass/Vol] 10.0 mg/dL Normal 7.6-11.0 [facility] Comment on above: Order Comment: Order Date: 11/23/24 Order Info: 0786-1 - CMP Order Info: 3015-3 - TSH Performed By: #### L [id number], [id number] #### [facility] [address] [place], [address] Chloride [Moles/Vol] 103 mmol/L Normal 98-108 [facility] Comment on above: Order Comment: Order Date: 11/23/24 Order Info: 0786-1 - CMP Order Info: [id number] - TSH Performed By: #### L [id number], [id number] #### [facility] [address] [place], [address] CO2 [Moles/Vol] 26.2 mmol/L Normal 21.0-32.0 [facility] Comment on above: Order Comment: Order Date: 11/23/24 Order Info: 0786 - CMP Order Info: 3 - TSH Performed By: #### L [id number], [id number] #### [facility] [address] [place], [address] Creatinine [Mass/Vol] 1.01 mg/dL Normal 0.70-1.20 [facility] Comment on above: Order Comment: Order Date: 11/23/24 Order Info: 0786- - CMP Order Info: [id number] - TSH Performed By: #### L [id number], [id number] #### [facility] [address] [place], [address] GAP 13 Normal 5-15 [facility] Comment on above: Order Comment: Order Date: 11/23/24 Order Info: 0786- - CMP Order Info: 3013 - TSH Performed By: #### L [id number], [id number] #### [facility] [address] [place], [address] GFR/1.73 sq M.predicted among non-blacks MDRD (S/P/Bld) [Vol rate/Area] 92 mL/min/{1.73_m2} Normal >60 [facility] Comment on above: Order Comment: Order Date: 11/23/24 Order Info: 0786-1 - CMP Order Info: [id number] - TSH Result Comment: mL/m in/1.73m2 CKD-EPI Creatinine Equation (2020) Performed By: #### L [id number], [id number] #### [facility] [address] [place], [address] Globulin (S) [Mass/Vol] 2.8 g/dL Normal 2.2-4.2 [facility] Comment on above: Order Comment: Order Date: 11/23/24 Order Info: 0786-1 - CMP Order Info: 3 - TSH Performed By: #### L [id number], [id number] #### [facility] [address] [place], [address] Glucose [Mass/Vol] 89 mg/dL Normal 70-99 [facility] Comment on above: Order Comment: Order Date: 11/23/24 Order Info: 0786-1 - [facility] Order Info: 3015-10 - TSH Performed By: #### L [id number], [id number] #### [facility] [address] [place], [address] Potassium [Moles/Vol] 4.3 mmol/L Normal 3.3-5.1 [facility] Comment on above: Order Comment: Order Date: 11/23/24 Order Info: 0786-1 - CMP Order Info: 3015-10 - TSH Performed By: #### L [id number], [id number] #### [facility] [address] [place], [address] Sodium [Moles/Vol] 141 mmol/L Normal 133-145 [facility] Comment on above: Order Comment: Order Date: 11/23/24 Order Info: 0786-1 - [facility] Order Info: 3 - TSH Performed By: #### L [id number], [id number] #### [facility] [address] [place], [address] T PROT 7.3 g/dL Normal 5.9-8.4 [facility] Comment on above: Order Comment: Order Date: 11/23/24 Order Info: 0786-1 - CMP Order Info: 3016-3 - TSH Performed By: #### L [id number], [id number] #### [facility] [address] [place], [place], [id number] Urea nitrogen [Mass/Vol] 18 mg/dL Normal 4-19 [facility] Comment on above: Order Comment: Order Date: 11/23/24 Order Info: 0786-1 - CMP Order Info: [id number] - TSH Performed By: #### L [id number], [id number] #### [facility] [address] [place], [place], [address] Creatinine Unsp time (U) [Ma ss/Vol]Ordered By: Pedro Parsons on 11-23-2024 Creatinine (U) [Mass/Vol] 113.00 mg/dL 39.00-259.00 [facility] GFR/1.73 sq M.predicted loyd g non-blacks MDRD (S/P/Bld) [Vol rate/Area]Ordered By: Pedro Parsons on 11-23-2024 Estimated GFR (MDRD) Non-Af Amer 92 >60 [facility] Comment on above: mL/min/1.73m2 CKD-EP I Creatinine Equation (2020) Laboratory - Chemistry and C hemistry - challengeOrdered By: Pedro Parsons on 11-23-2024 AST [Catalytic activity/Vol] 24 U/L <38 [facility] Microalb:Creat Ratio,Random URon 11-23-2024 Creatinine [Mass/Vol] 113.00 mg/dL Normal 39.00-259.00 [facility] Comment on above: Performed By: #### L 502.0250 #### [facility] [address] [place], [place], [address] MALB:CREAT UNABLE TO CALCULATE Normal [facility] Comment on above: Performed By: #### L 502.0250 #### [facility] [address] [place], [place], [address] MICROALBUMIN,UR < 12.0 Normal NO RANGE EST. [facility] Comment on above: Performed By: #### L 502.0250 #### [facility] [address] [place], [place], [address] Microalbumin/creat ratio urO rdered By: Pedro Parsons on 11-23-2024 Urine Microalbumin/Creatinine Ratio UNABLE TO CALCULATE mg/g CRE [facility] Potassium (Unsp spec) [Mass/ Vol]Ordered By: Pedro Parsons on 11-23-2024 Potassium [Moles/Vol] 4.3 mmol/L 3.3-5.1 [facility] Serum creatinine measurement (mass/volume)Ordered By: Pedro Parsons on 11-23-2024 Creatinine [Mass/Vol] 1.01 mg/dL 0.70-1.20 [facility] Serum globulin measurementOr dered By: Pedro Parsons on 11-23-2024 Globulin (S) [Mass/Vol] 2.8 g/dL 2.2-4.2 [facility] Serum glucose measurement (m ass/volume)Ordered By: Pedro Parsons on 11-23-2024 Glucose [Mass/Vol] 89 mg/dL 70-99 [facility] Serum or plasma alanine more otransferase (ALT) measurementOrdered By: Pedro Parsons on 11-23-2024 ALT [Catalytic activity/Vol] 30 U/L <47 [facility] Serum or plasma albumin clif urement (mass/volume)Ordered By: Pedro Parsons on 11-23-2024 Albumin [Mass/Vol] 4.4 g/dL 3.5-5.0 [facility] Serum or plasma albumin/glob ulin mass ratioOrdered By: Pedro Parsons on 11-23-2024 Albumin/Globulin [Mass ratio] 1.6 {ratio} 0.9-2.4 [facility] Serum or plasma alkaline [place] sphatase measurementOrdered By: Pedro Parsons on 11-23-2024 ALP [Catalytic activity/Vol] 79 U/L 40-129 [facility] Serum or plasma calcium clif urement (mass/volume)Ordered By: Pedro Parsons on 11-23-2024 Calcium [Mass/Vol] 10.0 mg/dL 7.6-11.0 [facility] Serum or plasma urea nitroge n measurement (mass/volume)Ordered By: Pedro Parsons on 11-23-2024 Urea nitrogen [Mass/Vol] 18 mg/dL 4-19 [facility] Sodium levelOrdered By: Pedro Parsons on 11-23-2024 Sodium [Moles/Vol] 141 mmol/L 133-145 [facility] TSH DL <= 0.005 mIU/L QnOrde red By: Pedro Parsons on 11-23-2024 Thyroid Stimulating Hormone (TSH) 1.830 uIU/mL 0.300-4.200 [facility] Thyroid Stim Hormone (TSH)on 11-23-2024 TSH 1.830 uIU/mL Normal 0.300-4.200 [facility] Comment on above: Order Comment: Order Date: 11/23/24 Order Info: 0786-1 - CMP Order Info: [id number] - TSH Performed By: #### L [id number], [id number] #### [facility] [address] [facility] [facility] [place], [place], [id number] Total proteinOrdered By: Sabrina Parsons on 11-23-2024 Protein [Mass/Vol] 7.3 g/dL 5.9-8.4 [facility] Elbow min 3 Viewson 10-12-19 25 Elbow min 3 Views [facility] Imaging Services [address] [place], [place] [address] Elbow min 3 Views MR#: [id number] Acct: [id number] Name: DANO GRIDER Rep #: [id number] : 1975 M 49 From: Shabbir Davey MD PCP: Dr. Pedro Parsons MD Status: REG CLI Study: Elbow min 3 Views Date of Exam: 10/12/24 Exam# [id number] Ordering Dr: Anival Neri MD PROCEDURE: ELBOW MIN 3 VIEWS REASON FOR EXAM: Hit right elbow on a pole 3 days ago, limited range of motion, pain and swelling TECHNIQUE: 3 view(s) of right elbow COMPARISON: None. FINDINGS: RIGHT ELBOW: No fracture, dislocation or joint effusion identified. Very small spurring at the coronoid process. Appearance of medial soft tissue swelling. Joint spaces appear within limits. RAD/Elbow min 3 Views IMPRESSION: No fracture, dislocation or joint effusion identified. Appearance of medial soft tissue swelling. Reading Location: [id number] CC: Dr. Pedro Parsons MD; Dr. Anival Neri MD Sommelier: Signed Normal [facility] Comprehensive Metabolic Prof ilon 02-14-2024 Albumin [Mass/Vol] 3.8 g/dL Normal 3.2-5.0 [facility] Comment on above: Order Comment: Order Date: 02/14/24 Order Info: [id number] - CMP Order Info: [id number] - LIPID Performed By: #### L 502.0250, L500.4100, L500.4050 #### [facility] [address] [place], [address] Albumin/Globulin [Mass ratio] 1.1 {ratio} Normal 0.9-2.4 [facility] Comment on above: Order Comment: Order Date: 02/14/24 Order Info: [id number] - CMP Order Info: [id number] - LIPID Performed By: #### L 502.0250, L500.4100, L500.4050 #### [facility] [address] [place], [address] ALK P 83 U/L Normal 45-117 [facility] Comment on above: Order Comment: Order Date: 02/14/24 Order Info: [id number] - CMP Order Info: [id number] - LIPID Performed By: #### L 502.0250, L500.4100, L500.4050 #### [facility] [address] [place], [address] ALT [Catalytic activity/Vol] 38 U/L Normal 16-61 [facility] Comment on above: Order Comment: Order Date: 02/14/24 Order Info: 0786 - CMP Order Info: [id number] - LIPID Performed By: #### L 502.0250, L500.4100, L500.4050 #### [facility] [address] [place], [address] AST [Catalytic activity/Vol] 16 U/L Normal 15-37 [facility] Comment on above: Order Comment: Order Date: 02/14/24 Order Info: 785- - CMP Order Info: [id number] - LIPID Performed By: #### L 502.0250, L500.4100, [id number] #### [facility] [address] [place], [address] Bilirubin [Mass/Vol] 0.40 mg/dL Normal 0.20-1.00 [facility] Comment on above: Order Comment: Order Date: 02/14/24 Order Info: [id number] - CMP Order Info: [id number] - LIPID Result Comment: For patients on eltrombopag therapy, use of Dimension [place] TBIL is not recommended. Performed By: #### L 502.0250, L500.4100, L500.4050 #### [facility] [address] [place], [address] BUN/CRE 15.0 RATIO Normal 10-20 [facility] Comment on above: Order Comment: Order Date: 02/14/24 Order Info: 0786- - CMP Order Info: [id number] - LIPID Performed By: #### L 502.0250, L500.4100, L500.4050 #### [facility] [address] [place], [address] CA,Total 9.2 mg/dL Normal 8.5-10.1 [facility] Comment on above: Order Comment: Order Date: 02/14/24 Order Info: [id number] - CMP Order Info: [id number] - LIPID Performed By: #### L 502.0250, L500.4100, L500.4050 #### [facility] [address] [place], [address] Chloride [Moles/Vol] 104 mmol/L Normal 98-107 [facility] Comment on above: Order Comment: Order Date: 02/14/24 Order Info: [id number] - CMP Order Info: [id number] - LIPID Performed By: #### L 502.0250, L500.4100, L500.4050 #### [facility] [address] [place], [address] CO2 [Moles/Vol] 28.0 mmol/L Normal 21.0-32.0 [facility] Comment on above: Order Comment: Order Date: 02/14/24 Order Info: [id number] - CMP Order Info: [id number] - LIPID Performed By: #### L 502.0250, L500.4100, L500.4050 #### [facility] [address] [place], [address] Creatinine [Mass/Vol] 1.00 mg/dL Normal 0.70-1.30 [facility] Comment on above: Order Comment: Order Date: 02/14/24 Order Info: [id number] - CMP Order Info: [id number] - LIPID Result Comment: The validity of the calculated GFR GFRAA in patients over 70 years has not been determined. Clinical correlation is essential. Performed By: #### L 502.0250, L500.4100, L500.4050 #### [facility] [address] [place], [address] EST GFR - AA 103 mL/min Normal >60 [facility] Comment on above: Order Comment: Order Date: 02/14/24 Order Info: [id number] - CMP Order Info: [id number] - LIPID Result Comment: Afri can [place] GFR Calc Performed By: #### L 502.0250, L500.4100, L500.4050 #### [facility] [address] [place], [address] GAP 9 Normal 5-15 [facility] Comment on above: Order Comment: Order Date: 02/14/24 Order Info: [id number] - CMP Order Info: [id number] - LIPID Performed By: #### L 502.0250, L500.4100, L500.4050 #### [facility] [address] [place], [address] GFR/1.73 sq M.predicted among non-blacks MDRD (S/P/Bld) [Vol rate/Area] 85 mL/min/{1.73_m2} Normal >60 [facility] Comment on above: Order Comment: Order Date: 02/14/24 Order Info: [id number]- - CMP Order Info: [id number] - LIPID Result Comment: Non- GFR Calc Performed By: #### L 502.0250, L500.4100, L500.4050 #### [facility] [address] [place], [address] Globulin (S) [Mass/Vol] 3.5 g/dL Normal 2.2-4.2 [facility] Comment on above: Order Comment: Order Date: 02/14/24 Order Info: [id number] - CMP Order Info: [id number] - LIPID Performed By: #### L 502.0250, L500.4100, L500.4050 #### [facility] [address] [place], [address] Glucose [Mass/Vol] 104 mg/dL Normal 74-106 [facility] Comment on above: Order Comment: Order Date: 02/14/24 Order Info: [id number] - CMP Order Info: [id number] - LIPID Result Comment: Fast ing Glucose result from 100 to 125 mg/dL suggests IMPAIRED HOMEOSTASIS per A.D.A. criteria. Performed By: #### L 502.0250, L500.4100, L500.4050 #### [facility] [address] [place], [address] Potassium [Moles/Vol] 4.0 mmol/L Normal 3.5-5.1 [facility] Comment on above: Order Comment: Order Date: 02/14/24 Order Info: [id number] - CMP Order Info: [id number] - LIPID Performed By: #### L 502.0250, L500.4100, L500.4050 #### [facility] [address] [place], [address] Sodium [Moles/Vol] 141 mmol/L Normal 136-145 [facility] Comment on above: Order Comment: Order Date: 02/14/24 Order Info: 0786- - CMP Order Info: [id number] - LIPID Performed By: #### L 502.0250, L500.4100, L500.4050 #### [facility] [address] [place], [address] T PROT 7.3 g/dL Normal 6.4-8.2 [facility] Comment on above: Order Comment: Order Date: 02/14/24 Order Info: 0786- - CMP Order Info: [id number] - LIPID Performed By: #### L 502.0250, L500.4100, [id number] #### [facility] [address] [place], [address] Urea nitrogen [Mass/Vol] 15 mg/dL Normal 7-18 [facility] Comment on above: Order Comment: Order Date: 02/14/24 Order Info: [id number] - CMP Order Info: [id number] - LIPID Performed By: #### L 502.0250, L500.4100, L500.4050 #### [facility] [address] [place], [address] Lipid Profileon 02-14-2024 Cholesterol [Mass/Vol] 230 mg/dL High [address] [facility] Comment on above: Order Comment: Order Date: 02/14/24 Order Info: [id number] - CMP Order Info: [id number] - LIPID Result Comment: <200 mg/dL Desirable 200-240 mg/dL Borderline >240 mg/dL High Risk Performed By: #### L 502.0250, L500.4100, L500.4050 #### [facility] [address] [place], [address] Cholesterol in HDL [Mass/Vol] 40 mg/dL Normal [facility] Comment on above: Order Comment: Order Date: 02/14/24 Order Info: [id number] - CMP Order Info: [id number] - LIPID Result Comment: The drugs N-Acetylcysteine and Metamizole may falsely depress this assay. Reference Range HDL <40 mg/dL Low HDL Cholesterol HDL >or= 60 mg/dL High HDL Cholesterol Performed By: #### L 502.0250, L500.4100, L500.4050 #### [facility] [address] [place], [address] Cholesterol in LDL [Mass/Vol] 135 mg/dL High 0-130 [facility] Comment on above: Order Comment: Order Date: 02/14/24 Order Info: [id number] - CMP Order Info: [id number] - LIPID Performed By: #### L 502.0250, L500.4100, L500.4050 #### [facility] [address] [place], [address] Cholesterol in VLDL [Mass/Vol] 55 mg/dL High 5-40 [facility] Comment on above: Order Comment: Order Date: 02/14/24 Order Info: [id number] - CMP Order Info: [id number] - LIPID Performed By: #### L 502.0250, L500.4100, L500.4050 #### [facility] [address] [place], [address] Triglyceride [Mass/Vol] 273 mg/dL High [facility] Comment on above: Order Comment: Order Date: 02/14/24 Order Info: [id number] - CMP Order Info: [id number] - LIPID Result Comment: The drugs N-Acetylcysteine and Metamizole may falsely depress this assay. Serum Triglycerides Reference Interval Normal <150 mg/dL Borderline high 150 - 199 mg/dL High 200 - 499 mg/dL Very High > or = 500 mg/dL Performed By: #### L 502.0250, L500.4100, L500.4050 #### [facility] [address] [place], [address] Microalb:Creat Ratio,Random URon 02-14-2024 Creatinine [Mass/Vol] 190.00 mg/dL Normal NO RANGE EST . [facility] Comment on above: Order Comment: Order Date: 02/14/24 Order Info: [id number] - MIACRE Performed By: #### L 502.0250, L500.4100, L500.4050 #### [facility] [address] [place], [address] MALB:CRE 5.2 mg/g CRE Normal <30 mg/g CRE [facility] Comment on above: Order Comment: Order Date: 02/14/24 Order Info: [id number] - MIACRE Performed By: #### L 502.0250, L500.4100, L500.4050 #### [facility] [address] [place], [address] MICROALBUMIN,UR 9.8 mg/L Normal NO RANGE EST. [facility] Comment on above: Order Comment: Order Date: 02/14/24 Order Info: [id number] - MIACRE Performed By: #### L 502.0250, L500.4100, L500.4050 #### [facility] [address] [place], [address] Basophil percentageOrdered B y: Dr. Parsons on 01-14-2023 Bilirubin [Mass/Vol] 0.40 mg/dL 0.20-1.00 [facility] Comment on above: For patients on eltr ombopag therapy, use of Dimension [place] TBIL is not recommended. Chloride [Moles/Vol] 106 mmol/L 98-107 [facility] Cholesterol [Mass/Vol] 235 mg/dL <[address] [facility] Comment on above: <200 mg/dL Desirable 200-240 mg/dL Borderline >240 mg/dL High Risk Glucose [Mass/Vol] 97 mg/dL 74-106 [facility] Potassium [Moles/Vol] 4.5 mmol/L 3.5-5.1 [facility] Protein [Mass/Vol] 7.8 g/dL 6.4-8.2 [facility] Sodium [Moles/Vol] 140 mmol/L 136-145 [facility] Laboratory - Chemistry and C hemistry - challengeOrdered By: Dr. Parsons on 01-14-2023 ALP [Catalytic activity/Vol] 81 U/L 45-117 [facility] ALT [Catalytic activity/Vol] 59 U/L 16-61 [facility] CO2 [Moles/Vol] 28.0 mmol/L 21.0-32.0 [facility] Globulin (S) [Mass/Vol] 3.7 g/dL 2.2-4.2 [facility] Urea nitrogen/Creatinine [Mass ratio] 16.3 mg/mg 10-20 [facility] No Panel InformationOrdered By: Dr. Parsons on 01-14-2023 Estimated GFR (MDRD) Amer 114 mL/min >60 [facility] Comment on above: GFR Calc Estimated GFR (MDRD) Non-Af Amer 94 mL/min >60 [facility] Comment on above: Non- GFR Calc Serum or plasma albumin clif urement (mass/volume)Ordered By: Dr. Parsons on 01-14-2023 Albumin [Mass/Vol] 4.1 g/dL 3.2-5.0 [facility] Serum or plasma albumin/glob ulin mass ratioOrdered By: Dr. Parsons on 01-14-2023 Albumin/Globulin [Mass ratio] 1.1 {ratio} 0.9-2.4 [facility] Serum or plasma calcium clif urement (mass/volume)Ordered By: Dr. Parsons on 01-14-2023 Calcium [Mass/Vol] 9.2 mg/dL 8.5-10.1 [facility] Serum or plasma cholesterol in HDL measurement (mass/volume)Ordered By: Dr. Parsons on 01-14-2023 Cholesterol in HDL [Mass/Vol] 36 mg/dL >40 [facility] Comment on above: The drugs N-Acetylcy steine and Metamizole may falsely depress this assay. Reference Range HDL <40 mg/dL Low HDL Cholesterol HDL >or= 60 mg/dL High HDL Cholesterol Serum or plasma creatinine m easurement (mass/volume)Ordered By: Dr. Parsons on 01-14-2023 Creatinine [Mass/Vol] 0.92 mg/dL 0.70-1.30 [facility] Comment on above: The validity of the calculated GFR & GFRAA in patients over 70 years has not been determined. Clinical correlation is essential. Serum or plasma urea nitroge n measurement (mass/volume)Ordered By: Dr. Parsons on 01-14-2023 Urea nitrogen [Mass/Vol] 15 mg/dL 7-18 [facility] Thin prep Papanicolaou smear with manual screeningOrdered By: Dr. Parsons on 01-14-2023 Thin prep Papanicolaou smear with manual screening 27 U/L 15-37 [facility] Thin prep Papanicolaou smear with manual screening 6 5-15 [facility] Basophil percentageon 2021 Bilirubin [Mass/Vol] 0.40 mg/dL 0.20-1.00 [facility] Work Phone: Comment on above: For patients on eltr ombopag therapy, use of Dim[employer] [place] TBIL is not recommended. Chloride [Moles/Vol] 106 mmol/L 98-107 [facility] Work Phone: Cholesterol [Mass/Vol] 219 mg/dL <[address] [facility] Work Phone: Comment on above: <200 mg/dL Desirable 200-240 mg/dL Borderline >240 mg/dL High Risk Glucose [Mass/Vol] 115 mg/dL 74-106 [facility] Work Phone: Comment on above: Fasting Glucose resu lt from 100 to 125 mg/dL suggests IMPAIRED HOMEOSTASIS per A.D.A. criteria. Potassium [Moles/Vol] 4.0 mmol/L 3.5-5.1 [facility] Work Phone: Comment on above: Slight Hemolysis, Re sult may be falsely increased. Protein [Mass/Vol] 7.5 g/dL 6.4-8.2 [facility] Work Phone: Sodium [Moles/Vol] 138 mmol/L 136-145 [facility] Work Phone: Laboratory - Chemistry and C hemistry - challengeon 05-21-2022 ALP [Catalytic activity/Vol] 77 U/L 45-117 [facility] Work Phone: ALT [Catalytic activity/Vol] 42 U/L 16-61 [facility] Work Phone: CO2 [Moles/Vol] 24.0 mmol/L 21.0-32.0 [facility] Work Phone: Globulin (S) [Mass/Vol] 3.5 g/dL 2.2-4.2 [facility] Work Phone: Urea nitrogen/Creatinine [Mass ratio] 14.0 mg/mg 10-20 [facility] Work Phone: No Panel Informationon 05-21 Estimated GFR (MDRD) Amer 113 mL/min >60 [facility] Work Phone: Comment on above: GFR Calc Estimated GFR (MDRD) Non-Af Amer 94 mL/min >60 [facility] Work Phone: Comment on above: Non- GFR Calc Urine Microalbumin/Creatinine Ratio 8.7 mg/g CRE <30 [facility] Work Phone: Serum or plasma albumin clif urement (mass/volume)on 05-21-2022 Albumin [Mass/Vol] 4.0 g/dL 3.2-5.0 [facility] Work Phone: Serum or plasma albumin/glob ulin mass ratioon 05-21-2022 Albumin/Globulin [Mass ratio] 1.1 {ratio} 0.9-2.4 [facility] Work Phone: Serum or plasma calcium clif urement (mass/volume)on 05-21-2022 Calcium [Mass/Vol] 9.6 mg/dL 8.5-10.1 [facility] Work Phone: Serum or plasma cholesterol in HDL measurement (mass/volume)on 05-21-2022 Cholesterol in HDL [Mass/Vol] 31 mg/dL >40 [facility] Work Phone: Comment on above: The drugs N-Acetylcy steine and Metamizole may falsely depress this assay. Reference Range HDL <40 mg/dL Low HDL Cholesterol HDL >or= 60 mg/dL High HDL Cholesterol Serum or plasma creatinine m easurement (mass/volume)on 05-21-2022 Creatinine [Mass/Vol] 0.93 mg/dL 0.70-1.30 [facility] Work Phone: Comment on above: The validity of the calculated GFR & GFRAA in patients over 70 years has not been determined. Clinical correlation is essential. Serum or plasma urea nitroge n measurement (mass/volume)on 05-21-2022 Urea nitrogen [Mass/Vol] 13 mg/dL 7-18 [facility] Work Phone: Serum or plasma uric acid me asurement (mass/volume)on 05-21-2022 Urate [Mass/Vol] 7.1 mg/dL 3.5-7.2 [facility] Work Phone: Comment on above: The drugs N-Acetylcy steine and Metamizole may falsely depress this assay. Thin prep Papanicolaou smear with manual screeningon 05-21-2022 Thin prep Papanicolaou smear with manual screening 19 U/L 15-37 [facility] Work Phone: Comment on above: Slight Hemolysis, Re sult may be falsely increased. Thin prep Papanicolaou smear with manual screening 8 5-15 [facility] Work Phone: Thin prep Papanicolaou smear with manual screening 11.8 mg/L NO RANGE EST. [facility] Work Phone: Urine creatinine measurement (mass/volume)on 05-21-2022 Creatinine (U) [Mass/Vol] 135.00 mg/dL NO RANGE EST. [facility] Work Phone: Encounters Encounter Date Encounter Type Care Provider Facility Start: 01-18-2025 ambulatory Pedro [place] Facility:[facility] Start: 11-23-2024 End: 11-23-[address] Pedro Parsons MD Work Phone: [facility] Work Phone: Start: 11-23-2024 End: 11-23-[address] [facility] Work [facility]: Start: 11-23-2024 End: 11-23-2024 ambulatory Pedro Parsons Facility:[facility] Start: 10-12-2024 End: 10-12-[address] Pedro Parsons MD Work Phone: [facility] Work Phone: Start: 10-12-2024 End: 10-12-[address] Anival Neri MD -Radiology, [place] Work Phone: Start: 10-12-2024 End: 10-12-2024 ambulatory Pedro Parsons Facility:[facility] Start: 02-14-2024 End: 02-14-2024 ambulatory Pedro Parsons Facility:[facility] Start: 01-14-2023 End: 01-14-2023 ambulatory [facility] Work Phone: Start: 01-14-2023 End: 01-14-2023 Patient encounter procedure [facility] Start: 05-21-2022 End: 05-21-2022 ambulatory [facility] Work Phone: Start: 05-21-2022 End: 05-21-2022 Patient encounter procedure [facility] Procedures Date Procedure Procedure Detail Performing Clinician Start: 10-12-2024 Plain x-ray of elbow Dr Arjun Parsons MD Work Phone: Payers Date Payer Category Payer Self-pay [id number] 2024 Unknown [id number] Medicaid [id number] Unknown [id number] Unknown [id number] Unknown [id number] [id number] Unknown [id number] [id number] [id number] Unknown [id number] Social History Date Type Detail Facility Start: 08-19-2019 End: 08-05-2022 Tobacco smoking status NEIS Unknown if ever smoked [facility] Start: 04-15-2018 Spouse/ Signif icant Other;With Family [facility] Start: 1975 Sex Assigned At Male [facility] Start: 08-05-2022 Tobacco smoking status NHIS Ex-smoker (finding) [facility] Start: 10-24-2024 End: 11-28-2024 Sex Male (finding) [facility] Radiology Diagnostic study note 10-13-2024 Note Date & Type Note Facility 10-13-2024 Radiology Diagnostic study note [facility] Imaging Services [address], [place] [id number] Elbow min 3 Views MR#: [id number] Acct: [id number] Name: DANO GRIDER Rep #: [id number] : 1975 M 49 From: Deric Davey MD PCP: Dr. Pedro Parsons MD Status: REG CLI Study:Elbow min 3 Views Date of Exam: Exam# [id number] Ordering Dr: Anival Neri MD PROCEDURE: ELBOW MIN 3 VIEWS REASON FOR EXAM: Hit right elbow on a pole 3 days ago, limited range of motion, pain and swelling TECHNIQUE: 3 view(s) of right elbow COMPARISON: None. FINDINGS: RIGHT ELBOW: No fracture, dislocation or joint effusion identified. Very small spurring at the coronoid process. Appearance of medial soft tissue swelling. Joint spaces appear within limits. RAD/Elbow min 3 Views IMPRESSION: No fracture, dislocation or joint effusion identified. Appearance of medial soft tissue swelling. Reading Location: [id number] CC: Dr. Pedro Parsons MD; Dr. Anival Neri MD ~ Sommelier: Signed [facility] Evaluation note Note Date & Type Note Facility Evaluation note No assessment information availa ble [facility] Work Phone: Reason for referral (narrative) Note Date & Type Note Facility Reason for referral (narrative) No reason for referral information available [facility] Work Phone: Family History No Family History Records Found Relationship Condition Age at Onset Recorded Date/T thom Not Specified Diabetes mellitus Unknown Hypertension Unknown Advance Directives No Advanced Directives Records Found Advance Directive Response Recorded Date/ Time Living Will No April 15 018 3:31pm Power of Peanut Blancher No April 15, 2018 3:31pm Chief Complaint and Reason for Visit Chief Complaint Admit Date RIGHT ELBOW October 12, 2024 5:06pm Chief Complaint Admit Date RIGHT ELBOW October 12, 2024 5:06pm EORDERS November 23, 2024 4:5 3pm Summary Purpose Additional Source Comments Goals (unrecognized section and content) Goals may be documented in a n alternate sectionGoals may be documented in an alternate sectionGoals may be documented in an alternate sectionGoals may be documented in an alternate section Care Teams (unrecognized sec tion and content) Team Status: Active Member Role Status Dates Dr. Pedro Parsons MD Family Provider Active Dr. Pedro Parsons MD Primary Care Provider Active Team Status: Inactive Member Role Status Dates Dr. Pedro Parsons MD Primary Care Provider, Attending Briana walters Active Team Status: Inactive Member Role Status Dates Dr. Pedro Parsons MD Primary Care Provider Active Start: October 12, 2024 End: October 12, 2024 Dr. Anival Neri MD Attending Provider Active Start: October 12, 2024 End: October 12, 2024 Dr. Anival Neri MD Referring Provider Active Start: October 12, 2024 End: October 12, 2024 Team Status: Inactive Member Role Status Dates Dr. Pedro Parsons MD Primary Care Provider Active Start: November 23, 2024 End: November 23, 2024 Dr. Pedro Parsons MD Attending Provider Active St art: November 23, 2024 End: November 23, 2024 Dr. Pedro Parsons MD Referring Provider Active St art: November 23, 2024 End: November 23, 2024 (unrecognized sect ion and content) No Status Records Found INFORMATION SOURCE (unrecogn ized section and content) DATE CREATED AUTHOR 01/17/2025 [facility] FOR RECORDS PERTAINING TO PATIENTS WHO ARE OR HAVE BEEN ENROLLED IN A CHEMICAL DEPENDENCY/SUBSTANCEABUSE PROGRAM, SOME INFORMATION MAY BE OMITTED. This clinical summary was aggregated from multiple sources. Caution should be exercised in using it in the provision of clinical care. This summary normalizes information from multiple sources, and as a consequence, information in this document may materially change the coding, format and clinical context of patient data. In addition, data may be omitted in some cases. CLINICAL DECISIONS SHOULD BE BASED ON THE PRIMARY CLINICAL RECORDS. [employer] provides no warranty or guarantee of the accuracy or completeness of information in this document.
[2025-08-09 12:15] LABS: Cholesterol 238 mg/dL (<=200); Low Density Lipoprotein Calc. 163 mg/dL; Triglycerides 196 mg/dL; Very Low Density Lipoprotein 39 mg/dL (5-40); cholesterol:hdl ratio screen 6.12
[2025-08-09 12:17] LABS: Creatinine, Urine (random) 272.00 mg/dL (39.00-259.00); Microalbumin,Random Urine 19.7 mg/L (<20 mg/L)
[2025-08-09 12:24] LABS: AST(SGOT) 30 U/L (<=37); Alanine Aminotransfer ALT/SGPT 51 U/L (<=46); Albumin, Serum 4.5 g/dL (3.5-5.0); Alkaline Phosphatase 73 U/L (40-129); Anion Gap 11 (7-18); BUN 12 mg/dL (4-19); BUN/Creat Ratio 12.4 RATIO (10-20); Calcium,Total 9.9 mg/dL (7.6-11.0); Carbon Dioxide 26.6 mmol/L (20.0-29.0); Chloride 103 mmol/L (96-106); Globulin 3.1 g/dL (2.2-4.2); Glucose 114 mg/dL (70-99); Potassium 4.5 mmol/L (3.5-5.1)
== END | disposition home or self-care (01) ==
LOC: MFPLAB 10:36
PROVIDERS: PCP Family Medicine; Visit Provider Family Medicine
DX: I10 Essential (primary) hypertension (principal); R73.09 Other abnormal glucose
CPT/HCPCS: 36415; 80053; 80061; 82043; 82570; 83036